=== PATIENT | female | born 1945 | race Hispanic/Latino ===

== ENCOUNTER 2016-06-27 08:16 | Outpatient (CLI) | payer MEDICARE ==
[2016-06-27] MEDS ORDERED: NACL ONE (09:26)
[2016-06-27 09:28] LABS: Blood Urea Nitrogen 9 mg/dL (7-17)
--- NOTE | 2016-06-27 10:35 | Cat Scan Report ---
CTA NECK INDICATION: Stenosis right carotid artery. COMPARISON: None similar at this institution. FINDINGS: CTA neck performed utilizing IV contrast. Axial, sagittal, coronal and MIP reconstructions obtained. Patent aortic arch with extensive atherosclerotic calcifications. Patent major arising branch vessels, including bilateral carotids and codominant vertebral arteries. Mild atherosclerotic calcifications. Moderate right carotid bulb atherosclerotic calcifications with approximately 60% stenosis possible. Minimal left carotid bulb atherosclerotic calcification without significant stenosis. Patent bilateral external carotid arteries and jugular veins. Unremarkable thyroid. Bilateral upper lobe emphysematous changes, right more than left. Biapical scarring also noted. Mild nasal septal deviation. Mild left maxillary sinus mucosal thickening posteriorly. Clear remainder imaged paranasal sinuses and mastoid air cells. Bilateral cataract surgery. Demineralized bones. Age-appropriate imaged intracranial appearance with bilateral ICA atherosclerotic calcifications. Multilevel cervical facet arthropathy. CONCLUSION: Various findings, as above, including atherosclerotic calcifications and approximately 60% stenosis at the right carotid bulb, as described. Please also correlate clinically and further quantify with carotid Doppler, as appropriate. Thank you for the opportunity to participate in this patient's care.
== END 2016-06-27 08:17 | disposition home or self-care (01) ==
LOC: CT 08:16
PROVIDERS: ATTEND Hospitalist
DX: I65.21 Occlusion and stenosis of right carotid artery (principal); I70.0 Atherosclerosis of aorta; J34.2 Deviated nasal septum; Z98.41 Cataract extraction status, right eye; Z98.42 Cataract extraction status, left eye; M12.88 Other specific arthropathies, not elsewhere classified, other specified site
CPT/HCPCS: 36415; 70498; 82565; 84520; Q9967